=== PATIENT | female | born 2000 | race Caucasian/White ===

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

== ENCOUNTER → 2020-03-17 | Outpatient (CLI) | payer SELFPAY ==
--- NOTE | 2020-03-17 13:09 | CT ---
EXAMINATION TYPE: CT elbow LT wo con DATE OF EXAM: 03/17/2020 COMPARISON: None HISTORY: 19-year-old female fall injury and elbow fracture, S06.9X9S; R41.840 TECHNIQUE: Contiguous axial scanning of the left elbow without IV contrast. Coronal and sagittal davon nstructions performed. CT DLP: 116.8 mGycm Automated exposure control for dose reduction was used. FINDINGS: There is a fracture involving the lateral epicondyle with 5 mm of diastases. Comminution extends dist ally and dorsally to also involve the posterior and lateral articular margin of the capitellum. There is a focal 4 mm step-off along the mid posterior capitellar articular surface and some linear puncta te fracture debris within the dorsal joint space. Associated elbow joint effusion. No additional acute fracture, subluxation, dislocation. IMPRESSION: 1. FRACTURE OF THE LATERAL EPICONDYLE WITH 5 MM OF DIASTASES. 2. FRACTURE COMMINUTION EXTENDS DISTALLY AND DORSALLY TO ALSO INVOLVE THE POSTERIOR AND LATERAL ARTIC ULAR MARGIN OF THE CAPITELLUM. 3. RESULTANT 4 MM FOCAL STEP-OFF ALONG THE MID POSTERIOR CAPITELLAR ARTICULAR SURFACE AND SOME LINEAR PUNCTATE FRACTURE DEBRIS WITHIN THE DORSAL JOINT SPACE. 4. ASSOCIATED ELBOW JOINT EFFUSION.
== END | disposition home or self-care (01) ==
LOC: RADCTMAIN 12:35
PROVIDERS: ATTEND Orthopaedic Surgery
DX: S42.432A Displaced fracture (avulsion) of lateral epicondyle of left humerus, initial encounter for closed fracture (principal); S42.452A Displaced fracture of lateral condyle of left humerus, initial encounter for closed fracture; M25.422 Effusion, left elbow